=== PATIENT | male | born 1955 | race Caucasian/White ===

== ENCOUNTER → 2016-10-12 | Outpatient (CLI) | payer MEDICAID | LOC: RAD 07:49 | PROVIDERS: ATTEND Internal Medicine | DX: C18.2 Malignant neoplasm of ascending colon (principal) | CPT/HCPCS: 71260; 74177 ==

== ENCOUNTER → 2016-11-07 | Outpatient (CLI) | payer MEDICAID | LOC: RAD 19:21 | PROVIDERS: ATTEND Internal Medicine | DX: C18.2 Malignant neoplasm of ascending colon (principal) | CPT/HCPCS: 78815; A9552 ==

== ENCOUNTER → 2017-02-17 | Outpatient (CLI) | payer MEDICAID | LOC: RAD 09:01 | PROVIDERS: ATTEND Internal Medicine | DX: C18.2 Malignant neoplasm of ascending colon (principal) | CPT/HCPCS: 71260; 74177 ==

== ENCOUNTER → 2017-03-11 | Outpatient (CLI) | payer MEDICAID ==
--- NOTE | 2017-03-14 10:22 | RADIOLOGY REPORT (SQ) ---
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 CT scans dated 02/17/2017 and 10/12/2016. RADIONUCLIDE AND DOSE: 12.0 mCi F18 FDG The route of agent administration: Intravenous FASTING BLOOD SUGAR: 119 mg/dl CONTRAST TYPE AND DOSE: No CT contrast given. TECHNIQUE: Blood glucose level was verified. Above dose of FDG was injected intravenously. 2-D seg mented attenuation correction images were obtained from the base of the skull to the midthighs. Nonc ontrast CT images were obtained for attenuation correction and fusion with emission images. CT image s were performed without oral or intravenous contrast and are not sensitive for parenchymal lesions. A series of overlapping emission PET images were obtained. [facility] by the radiologist. Images stored on PACS. LIMITATIONS: None. FINDINGS: HEAD AND NECK: No areas of abnormal metabolic activity in the soft tissues of the head and neck. CHEST: No areas of abnormal metabolic activity in the chest. A few calcified lymph nodes. ABDOMEN AND PELVIS: Again seen is a small nodule on the right side of the rectum, measuring 1.4 cm. Mean SUV value 2.63 (prior value 3.15). More inferiorly a soft tissue lesion in the midline with pro bable central fluid, measuring 3.4 cm. Mean SUV value 6.16. Prior value 3.51. There is also a foca l round area of increased activity on the right side of the deep pelvis with mean SUV value 7.11. No discrete mass visualized on the corresponding CT images. No other areas of abnormal metabolic activ ity in the abdomen or pelvis l. PROXIMAL LOWER EXTREMITIES: No areas of abnormal metabolic activity in the soft tissues of the lower extremities. BONES: No abnormal metabolic activity in the visualized skeleton. ADDITIONAL CT FINDINGS: Stable splenomegaly with several punctate calcified splenic granulomas. Nono bstructing calculus in the left kidney. Left inguinal hernia containing fat. No involvement of alber l. OTHER: No other significant findings. IMPRESSION: 1. PELVIC MASSES AGAIN SEEN WITH ABNORMAL ACTIVITY CONCERNING FOR MALIGNANCY. THERE IS A NEW FOCAL A KRZYSZTOF OF ACTIVITY IN THE RIGHT DEEP PELVIS DESCRIBED WITH NO DISCRETE MASS ON THE CORRESPONDING CT I MAGES. THIS COULD BE INCIDENTAL ACTIVITY IN THE DISTAL URETER ALTHOUGH A TINY MALIGNANCY CANNOT BE E XCLUDED. 2. NO OTHER AREAS OF ABNORMAL ACTIVITY. STABLE INCIDENTAL CT FINDINGS ABOVE. TECHNICAL DOCUMENTATION: JOB ID: [id number] [employer]- All Rights Reserved
== END ==
LOC: RAD 13:34
PROVIDERS: ATTEND Internal Medicine
DX: C18.2 Malignant neoplasm of ascending colon (principal)
CPT/HCPCS: 78815; A9552

== ENCOUNTER 2017-05-19 14:52 | Outpatient (CLI) | payer MEDICAID ==
[~2017-05-19 14:52] MED LIST: ACETAMINOPHEN 325 MG TABLET PO PRN; DIPHENHYDRAMINE HCL 25 MG CAPSULE PO PRN
[2017-05-19 16:02] VITALS: BP 151/81
[2017-05-19 17:11] LABS: HEMOGLOBIN 8.3 g/dL (13.5-17.0)
[2017-05-19 17:15] LABS: HEMATOCRIT 20.5 % (37.9-51.0)
[2017-05-19 17:25] LABS: WHITE BLOOD COUNT 5.3 10^3/uL (4.0-10.5)
== END 2017-05-19 19:39 | disposition home or self-care (01) ==
LOC: II 14:52 → 5TH 14:58 → 5 16:21 → II 19:39
PROVIDERS: ATTEND Internal Medicine
PROC: 30243R1 Transfusion of Nonautologous Platelets into Central Vein, Percutaneous Approach (ICD-10-PCS; principal; 2017-05-19)
DX: D69.6 Thrombocytopenia, unspecified (principal)
CPT/HCPCS: 86900; 86901; 36415; 36430; P9035; J3490 ×2

== ENCOUNTER 2017-06-27 14:24 | Emergency (ER) | payer MEDICAID ==
--- NOTE | 2017-06-27 15:24 | RADIOLOGY REPORT (SQ) ---
EXAM DESCRIPTION: CHEST SINGLE VIEW COMPLETED DATE/TIME: 06/27/2017 3:13 pm REASON FOR STUDY: fall COMPARISON: PET-CT 03/11/2017 CT chest 02/17/2017 Chest film 06/01/2016 EXAM PARAMETERS: NUMBER OF VIEWS: One view. TECHNIQUE: Single frontal radiographic view of the chest acquired. RADIATION DOSE: NA LIMITATIONS: None. FINDINGS: LUNGS AND PLEURA: No opacities, masses or pneumothorax. No pleural effusion. MEDIASTINUM AND HILAR STRUCTURES: No masses. Contour normal. HEART AND VASCULAR STRUCTURES: Stable mild cardiomegaly BONES: No acute findings. HARDWARE: Right-sided permanent central line tip in the right atrium, unchanged. OTHER: No other significant finding. IMPRESSION: NO ACUTE RADIOGRAPHIC FINDING IN THE CHEST. TECHNICAL DOCUMENTATION: JOB ID: [id number]
--- NOTE | 2017-06-27 15:26 | ER Document Report ---
ED General - General Chief Complaint: Fall Injury Stated Complaint: RASH Time Seen by Provider: 06/27/17 14:28 Mode of Arrival: Stretcher Information source: Relative TRAVEL OUTSIDE OF THE [place] IN LAST 30 DAYS: No - HPI Patient complains to provider of: Patient and swelling to right groin Onset: Just prior to arrival Notes: Patient is a 62-year-old male with a history of end-stage colorectal cancer, who was brought to the emergency room by EMS for swelling and discoloration to his right groin, patient is nonverbal, his mother is at bedside who is his caregiver, he has hospice care that comes out to the house twice a week and the hospice nurse recommended he come to the ER for evaluation, mother reports he did have a recent fall onto the right side, he has some erythematous and ecchymotic borrero in the right posterior shoulder, right upper back and significant swelling with hematoma and ecchymosis in the right hip and groin area - Related Data Allergies/Adverse Reactions: No Known Allergies Allergy (Verified 06/02/16 09:40) Past Medical History - General Information source: Parent, Emergency Med Personnel - Social History Smoking Status: Unknown if Ever Smoked Family History: Reviewed & Not Pertinent - Past Medical History Cardiac Medical History: Reports: Hx Atrial Fibrillation, Hx Hypertension Denies: Hx Coronary Artery Disease, Hx Heart Attack Pulmonary Medical History: Denies: Hx Asthma, Hx Bronchitis, Hx COPD, Hx Pneumonia, Hx Tuberculosis Neurological Medical History: Reports: Hx Migraine. Denies: Hx Cerebrovascular Accident, Hx Seizures Endocrine Medical History: Reports: Hx Diabetes Mellitus Type 2 - diet controlled Renal/ Medical History: Reports: Hx Kidney Stones Malignancy Medical History: Reports Hx Colorectal Cancer GI Medical History: Reports: Hx Gastroesophageal Reflux Disease Musculoskeltal Medical History: Reports Hx Arthritis - RA Past Surgical History: Reports: Hx Cholecystectomy. Denies: Hx Pacemaker - Immunizations Immunizations up to date: No Hx Diphtheria, Pertussis, Tetanus Vaccination: No Review of Systems - Review of Systems Constitutional: Fever - 3 days ago EENT: No symptoms reported Cardiovascular: No symptoms reported Respiratory: No symptoms reported Gastrointestinal: Poor appetite, Poor fluid intake Genitourinary: No symptoms reported Male Genitourinary: No symptoms reported Musculoskeletal: See HPI Skin: See HPI Hematologic/Lymphatic: No symptoms reported Neurological/Psychological: No symptoms reported -: Yes All other systems reviewed and negative Physical Exam - Vital signs Vitals: Temp Pulse Resp BP Pulse Ox 97.7 F 113 H 20 114/67 96 06/27/17 14:29 06/27/17 14:29 06/27/17 14:29 06/27/17 14:29 06/27/17 14:29 Interpretation: Tachycardic - General General appearance: Other - Somnolent, arousable on verbal stimuli In distress: None - HEENT Head: Normocephalic, Atraumatic Eyes: Normal Conjunctiva: Normal Eyelashes: Normal Pupils: PERRL Mucous membranes: Dry Pharynx: Normal Neck: Normal - Respiratory Respiratory status: No respiratory distress Chest status: Nontender Breath sounds: Normal Chest palpation: Normal - Cardiovascular Rhythm: Regular, Tachycardia Heart sounds: Normal auscultation Murmur: No - Abdominal Inspection: Normal Distension: No distension Bowel sounds: Normal Tenderness: Nontender Organomegaly: No organomegaly - Genitourinary Inspection: Other - Swelling with ecchymosis to right groin extending over the right hip and down the right leg - Back Back: Other - Erythema and ecchymosis to the right upper back/right posterior shoulder - Extremities General upper extremity: Normal inspection, Nontender, Normal color, Normal ROM , Normal temperature General lower extremity: Edema. No: Dahiana's sign Hip: Ecchymosis - Ecchymosis with mild surrounding erythema and swelling to the right hip, right groin area, extending down the right leg - Neurological Bruce Coma Scale Eye Opening: To Voice Bruce Coma Scale Verbal: Incomprehensible Bruce Coma Scale Motor: Withdraws to Pain Landen Coma Scale Total: 9 - Skin Skin Temperature: Warm Skin Moisture: Dry Skin Color: Pale Course - Re-evaluation Re-evalutation: 06/27/17 15:24 Patient was discussed with oncologistfrancis Dr. who confirms that patient has had an acute change in mental status, agrees that patient will likely not be able to return home to the care of his mother as she is unable to appropriately care for him at this point in time, Dr. Howard agrees with further workup of patient in the department with likely admission to hospitalist service, if there is a treatable source of infection from recent fever patient should be treated, otherwise he should be admitted pending placement in hospice care, he requested if patient is admitted that he be consulted to assist with care 06/27/17 17:03 Social work contacted [facility], Juliane ruffin, came out and evaluated patient and confirms that he meets criteria for placement in hospice house, they have open beds, likely he can be transferred there first thing in the morning This plan was discussed with oncologist, Dr. Howard, who is in agreement, we will give patient IV fluids and IV Levaquin while in the department - Vital Signs Vital signs: Temp Pulse Resp BP Pulse Ox 97.7 F 113 H 17 110/65 93 06/27/17 14:29 06/27/17 14:29 06/27/17 16:01 06/27/17 16:01 06/27/17 16:01 - Laboratory Result Diagrams: 06/27/17 15:49 06/27/17 15:49 Laboratory results interpreted by me: 06/27/17 06/27/17 15:49 15:49 WBC 14.9 H RBC 3.65 L Hgb 12.0 L Hct 35.4 L RDW 17.1 H Plt Count 77 L Seg Neuts % (Manual) 88 H Lymphocytes % (Manual) 4 L Abs Neuts (Manual) 13.1 H Sodium 127.6 L BUN 54 H Creatinine 1.39 H Est GFR (Non-Af Amer) 52 L Direct Bilirubin 0.6 H AST 72 H Alkaline Phosphatase 217 H Total Protein 5.7 L Albumin 2.4 L - Diagnostic Test Radiology reviewed: Image reviewed, Reports reviewed - EKG Interpretation by Me EKG shows normal: Sinus rhythm Rate: Tachycardia Discharge - Discharge Clinical Impression: Colorectal cancer, stage IV Groin hematoma Qualifiers: Encounter type: initial encounter Qualified Code(s): S30.1XXA - Contusion of abdominal wall, initial encounter Condition: Serious Disposition: HOSPICE CENTER
--- NOTE | 2017-06-27 15:29 | RADIOLOGY REPORT (SQ) ---
EXAM DESCRIPTION: HIP RIGHT AP/LATERAL COMPLETED DATE/TIME: 06/27/2017 3:13 pm REASON FOR STUDY: fall COMPARISON: CT abdomen and pelvis 02/17/2017 NUMBER OF VIEWS: Two views. TECHNIQUE: AP pelvis and additional frog-leg view of the right hip. LIMITATIONS: None. FINDINGS: MINERALIZATION: Normal. RIGHT HIP: No fracture or dislocation. No worrisome bone lesions. LEFT HIP: No fracture or dislocation. No worrisome bone lesions. PUBIS AND ISCHIUM: No fracture. PELVIS: No fracture. SACRUM: No fracture or dislocation. No worrisome bone lesions. LOWER LUMBAR SPINE: No fracture or dislocation. No worrisome bone lesions. No significant disc disea se. SOFT TISSUES: Some increase air and fecal material noted rectosigmoid. OTHER: If an occult fracture suspected clinically, consider followup imaging. IMPRESSION: No acute fracture right hip. TECHNICAL DOCUMENTATION: JOB ID: [id number] [employer]- All Rights Reserved
[2017-06-27 16:16] LABS: HEMATOCRIT 35.4 % (37.9-51.0); HGB HCT DIFFERENCE 0.6; MEAN CORPUSCULAR HEMOGLOBIN 32.8 pg (27.0-33.4); MEAN CORPUSCULAR HGB CONC 33.8 g/dL (32.0-36.0); MEAN CORPUSCULAR VOLUME 97 fl (80-97); RED BLOOD COUNT 3.65 10^6/uL (4.35-5.55); RED CELL DISTRIBUTION WIDTH 17.1 % (11.5-14.0); WHITE BLOOD COUNT 14.9 10^3/uL (4.0-10.5)
[2017-06-27 16:19] LABS: APPEARANCE,URINE SLIGHTLY-CLOUDY; BILIRUBIN,URINE NEGATIVE (NEGATIVE); GLUCOSE, URINE NEGATIVE (NEGATIVE); KETONES,URINE NEGATIVE (NEGATIVE); LEUKOCYTE ESTERASE,URINE NEGATIVE (NEGATIVE); NITRITE,URINE NEGATIVE (NEGATIVE); PROTEIN,URINE NEGATIVE (NEGATIVE); URINE SPECIFIC GRAVITY 1.023; UROBILINOGEN,URINE NEGATIVE mg/dL (<2.0)
[2017-06-27 16:39] LABS: BASOPHILS % (MANUAL) 0 % (0-2); EOSINOPHILS % (MANUAL) 0 % (0-6); LYMPHOCYTES % (MANUAL) 4 % (13-45); TOTAL CELLS COUNTED 100
[2017-06-27 16:40] LABS: ANISOCYTOSIS 1+; POIKILOCYTOSIS SLIGHT; TOXIC GRANULATION SLIGHT
[2017-06-27 16:43] LABS: ALANINE AMINOTRANSFERASE 41 U/L (21-72); ALBUMIN 2.4 g/dL (3.5-5.0); ALKALINE PHOSPHATASE 217 U/L (38-126); ANION GAP 7 (5-19); ASPARTATE AMINO TRANSFERASE 72 U/L (17-59); BILIRUBIN,DIRECT 0.6 mg/dL (0.0-0.4); BILIRUBIN,TOTAL 0.7 mg/dL (0.2-1.3); BLOOD UREA NITROGEN 54 mg/dL (7-20); CALCIUM 9.1 mg/dL (8.4-10.2); CARBON DIOXIDE 23 mmol/L (22-30); CHLORIDE 98 mmol/L (98-107); CREATININE RESULT 1.39 mg/dL (0.52-1.25); GLUCOSE 97 mg/dL (75-110); POTASSIUM 4.7 mmol/L (3.6-5.0); SODIUM 127.6 mmol/L (137-145); TOTAL PROTEIN 5.7 g/dL (6.3-8.2)
[2017-06-27] MEDS ORDERED: NORMAL SALINE 1000 ML 1,000 ML IV PRN (16:43)
[2017-06-27] MEDS ORDERED: LEVOFLOXACIN 750 MG/D5W RTU 750 MG/150 ML RTUPB IV ONE (16:53)
[2017-06-27] MEDS: MORPHINE SULFATE 10 MG/ML INJ IV SCH (18:00)
--- NOTE | 2017-06-27 21:05 | EKG REPORT ---
SEVERITY:- OTHERWISE NORMAL ECG - SINUS TACHYCARDIA : Confirmed by: Christiana Gaitan MD 27-Jun-2017 21:04:07
[2017-06-28] MEDS: MORPHINE SULFATE 10 MG/ML INJ IV SCH ×4 (00:21→17:24)
[2017-06-28] MEDS ORDERED: MORPHINE SULFATE 10 MG/ML INJ IV PRN (08:40)
--- NOTE | 2017-06-28 10:09 | ER Document Report ---
Doctor's Note Notes: 06/28/17 10:06 Rounds: Chart reviewed and patient interviewed briefly. Patient only request is for water. It appears the patient is being held pending hospice placement. Patient qualifies for hospice, but his mother refuses to sign for him to be sent to a facility a great distance from here because she cannot drive that far. He is being evaluated for possible acceptance at [facility]. Randy Thompson MD 06/28/17 17:32 This afternoon, patient's nurse pointed out to me the red area in the patient's right groin region. Since I did not examine this patient upon his arrival or during his stay previously, I was not aware of this finding. Patient obviously has cellulitis in the right inguinal region extending down to the right side of the scrotum and into the proximal inner right thigh. Additionally, in the center of this redness, over the right inguinal region, there appears to have been some leakage of fluid which may be indicative of an abscess. I had an ultrasound done which showed some subcutaneous edema and subcutaneous air, but no collection of fluid like an abscess. I suspect the patient did have some abscess formation and its leaked out into his diaper. Examining that area does reveal some oozing from up in that region. Patient is a DNR and a hospice patient and, that being the case, I have been working with hospitalist to arrange for patient to be sent to [facility]. They have inpatient capabilities of IV fluids and IV antibiotics. I recommend a gram of Rocephin IV daily. Local wound care to the right inguinal areas recommended. Pain management also. From what I am told, there is sufficient personnel, including physicians, at this facility that can care for patient receiving IV antibiotics. Because of his DNR and hospice status, I think it is a reasonable course to take to transfer the patient to that facility for his ongoing care.
[2017-06-28] MEDS ORDERED: CEFTRIAXONE 1 GM/D5W RTU 1 GM/50 ML RTUPB IV ONE (12:13)
--- NOTE | 2017-06-28 14:20 | RADIOLOGY REPORT (SQ) ---
EXAM DESCRIPTION: U/S NON-OB PELVIS LTD W/O DOP COMPLETED DATE/TIME: 06/28/2017 1:59 pm REASON FOR STUDY: Cellulitis, questionable abscess right inguinal COMPARISON: None. TECHNIQUE: Dynamic and static grayscale images acquired of the localized site of clinical concern an d recorded on PACS. Additional selected color Doppler and spectral images recorded. SITE OF CONCERN: Right groin. LIMITATIONS: None. FINDINGS: Extensive edema in the subcutaneous soft tissues. No discrete fluid collection. No abnor mal mass. IMPRESSION: EXTENSIVE SUBCUTANEOUS EMPHYSEMA. NO DISCRETE FLUID COLLECTION OR ABSCESS. TECHNICAL DOCUMENTATION: JOB ID: [id number] [employer]- All Rights Reserved
[2017-06-28 17:31] VITALS: BP 119/75
== END 2017-06-28 17:40 | disposition hospice, inpatient (51) ==
LOC: ER 14:24
DX: L03.314 Cellulitis of groin (principal); N49.2 Inflammatory disorders of scrotum; S30.1XXA Contusion of abdominal wall, initial encounter; W19.XXXA Unspecified fall, initial encounter; C19 Malignant neoplasm of rectosigmoid junction; Z66 Do not resuscitate; I48.91 Unspecified atrial fibrillation; I10 Essential (primary) hypertension; E11.9 Type 2 diabetes mellitus without complications; Z90.49 Acquired absence of other specified parts of digestive tract; Z87.442 Personal history of urinary calculi
CPT/HCPCS: 93005; 96376; 99285; 96375; 96365; 96367; 36415; 87040; 87086; 87070; 87205; 85025; 87075; 80053; 81001; 71010; 73502; 76857; 93010; J2270 ×2; J0696; J1956